=== PATIENT | female | born 1975 | race Caucasian/White ===

== ENCOUNTER 2018-01-06 05:03 | Day surgery (SDC) | payer OTHER ==
[2018-01-04 16:46] VITALS: BMI 35.7
--- NOTE | 2018-01-06 07:38 | HP ---
History & Physical Update - History History: No Change - Physical Physical: No Change - Assessment Assessment: No Change - Plan Plan: No Change (H&P in chart from Dr. Miller on 01/04/18. [facility] [place] negative results from 01/04/18.)
[2018-01-06] MEDS ORDERED: BUPIVACAINE HCL/PF 0.5% (5MG/ML) 10 ML VIAL ONE (08:51)
[2018-01-06] MEDS ORDERED: BUPIVACAINE HCL/PF 0.5% (5MG/ML) 10 ML VIAL IJ ONE ×2 (10:18→10:46)
--- NOTE | 2018-01-06 10:55 | OP ---
Operative Note - Note: Operative Date: 01/06/18 Pre-Operative Diagnosis: Pelvic pain. multiparity. voluntary sterilizaton Operation: Laparoscopic bilateral salpingectomy. Laparoscopic enterolyisis Findings: numerous dense omental adhesions Post-Operative Diagnosis: Same as Pre-op Surgeon: Elsy Miller Pressure Vessel Inspector: Joslyn Paul Anesthesia: General Estimated Blood Loss (mls): 20 Operative Report Dictated: Yes
--- NOTE | 2018-01-06 11:03 | SURG ---
Surgery Psychological Anthropologist Note Psychological Anthropologist: Joslyn Paul PA-C Date of Service: 01/06/18 Diagnosis: elvic pain. multiparity. voluntary sterilizaton Procedure: Laparoscopic bilateral salpingectomy. Laparoscopic enterolyisis I was present for the entirety of the operative procedure. For further detail, please refer to operative report. Visit type - Case Type Case Type: Scheduled Admission - Emergency Emergency Visit: No - New patient This patient is new to me today: Yes Date on this admission: 01/06/18
[2018-01-06] MEDS ORDERED: oxyCODONE HCL 5 MG TABLET PO PRN (11:08)
[2018-01-06] MEDS ORDERED: ONDANSETRON 4 MG/2 ML VIAL IVPUSH PRN (11:08)
[2018-01-06] MEDS ORDERED: PROMETHAZINE HCL 25 MG/1 ML VIAL IVPUSH PRN (11:08)
[2018-01-06] MEDS ORDERED: LACTATED RINGERS SOLUTION 1,000 ML IV SCH (11:15)
[2018-01-06 14:35] VITALS: BP 104/61; PULSE 100; TEMP 100
--- NOTE | 2018-01-06 15:58 | OP ---
DATE OF OPERATION: 01/06/2018 PREOPERATIVE DIAGNOSIS: Voluntary sterilization and multiparity. POSTOPERATIVE DIAGNOSES: 1. Voluntary sterilization and multiparity. 2. Bowel adhesions. OPERATION: Laparoscopic bilateral salpingectomy and laparoscopic enterolysis. ANESTHESIA: General. ANESTHESIOLOGIST: Inocencia Shepherd MD PROCEDURE: Patient was taken to the operating room, placed in dorsal lithotomy position, prepped and draped in the usual sterile fashion. Timeout was performed in accordance to hospital regulation. A Craven catheter was inserted into the bladder. Attention was then directed to the umbilicus, where a 5 mm umbilical incision was made. Veress needle was inserted into the cavity. Approximately 3-4 L of CO2 was insufflated in the cavity. Veress needle was then removed and a 5 mm trocar was inserted. Laparoscope and camera was attached. Visualization revealed the uterus was totally attached to the anterior abdominal wall and numerous bowel adhesions. Two trocars were placed on the left and the right side. After 5 mm incisions had been made, trocars were inserted under direct visualization. The LigaSure and grasper was attached. Bowel adhesions were noted and cautery and cutting of the omental adhesions were done to allow visualization of the fallopian tubes. The left fallopian tube was adherent to also the sidewall. The right fallopian tube was grasped and LigaSure was then used to coagulate and cut the fallopian tube away from the uterus and ovary and the tube was removed and submitted to Pathology. Left tube was identified and found to be adherent to the sidewall. Elevation of the tube was done. Fimbriated end was grasped and coagulation and cutting of the fimbriated end was done and the fallopian tube was removed from the uterus and the ovaries using LigaSure coagulating and cutting. Hemostasis was achieved using cauterization. Omentum was checked and found to be hemostatic. The uterus was not removed and remained adherent to the anterior abdominal wall. After hemostasis had been achieved, irrigation suction done and the specimen submitted to Pathology. The CO2 was removed from the abdomen. The tissues were then closed using 4-0 Biosyn suture. The wound was washed and dressed. Patient had tolerated the procedure. Craven catheter was removed. ESTIMATED BLOOD LOSS: 20 mL Gina [id number]
--- NOTE | 2018-01-07 15:40 | PATH ---
Surgical Pathology Report Patient Name: SANDRITA WHITEHEAD Med. Rec. #: [id number] /Age/Gender: 1975 (Age: 42) / F Account: [id number] Location: [facility] Taken: 01/05/2018 Received: 01/06/2018 Reported: 01/07/2018 Physicians: Elsy Miller M.D. Specimen(s) Received A: RIGHT FALLOPIAN TUBE B: LEFT FALLOPIAN TUBE Clinical History Voluntary sterilization Final Diagnosis A. RIGHT FALLOPIAN TUBE, SALPINGECTOMY: FULL LUMINAL PORTION OF UNREMARKABLE FALLOPIAN TUBE, INCLUDING FIMBRIATED END. B. LEFT FALLOPIAN TUBE, SALPINGECTOMY: FULL LUMINAL PORTION OF UNREMARKABLE FALLOPIAN TUBE, INCLUDING FIMBRIATED END. Electronically Signed Tal Thacker M.D. Gross Description A. Received in formalin labeled as "right tube" is a pink -geiger fallopian tube measuring 5 cm in length with a diameter of 0.8 cm. Fimbriated end and pinpoint lumen are identified. Power Shovel Operator Helper sections are submitted in one cassette B. Received in formalin labeled as "left tube" is a portion of pink -geiger fallopian tube measuring 3.5 cm in length with a diameter of 0.7 cm. In the same container, two separate soft tissue fragments consistent with fimbria measuring 1.5 x 1 cm, each are identified A pinpoint lumen is noted. Power Shovel Operator Helper sections are submitted in one cassette maribel/01/06/2018
== END 2018-01-06 14:45 | disposition home or self-care (01) ==
LOC: JASU-SURG 05:03
PROVIDERS: ATTEND Obstetrics & Gynecology
PROC: 0UT74ZZ Resection of Bilateral Fallopian Tubes, Percutaneous Endoscopic Approach (ICD-10-PCS; principal; 2018-01-06 09:00)
DX: Z30.2 Encounter for sterilization (principal); K66.0 Peritoneal adhesions (postprocedural) (postinfection)
CPT/HCPCS: 88302-TC; 94760

== ENCOUNTER 2018-09-12 08:26 | Day surgery (SDC) | payer OTHER ==
[2018-09-09 08:37] VITALS: BMI 38.0
[2018-09-12] MEDS ORDERED: IBUPROFEN 400 MG TABLET (FP) PO PRN (10:41)
[2018-09-12] MEDS ORDERED: oxyCODONE HCL 5 MG TABLET PO PRN (10:41)
[2018-09-12] MEDS ORDERED: ACETAMINOPHEN 325 MG TABLET (FP) PO PRN (10:41)
--- NOTE | 2018-09-12 10:41 | HP ---
History & Physical Update - History History: No Change - Physical Physical: No Change - Assessment Assessment: No Change - Plan Plan: No Change (No change in HP)
--- NOTE | 2018-09-12 10:43 | OP ---
Operative Note - Note: Operative Date: 09/12/18 Pre-Operative Diagnosis: Abnormal utering bleeding Operation: Hysteroscopic myomectomy. DC Findings: cervical polyp endometrial polyp Post-Operative Diagnosis: Same as Pre-op Surgeon: Elsy Miller Anesthesiologist/CLOTH WIRE WEAVER: Teresa Rubalcava Anesthesia: General Estimated Blood Loss (mls): 20 Operative Report Dictated: Yes
[2018-09-12] MEDS ORDERED: PROPOFOL 20 ML ONE ×2 (10:50→11:10)
[2018-09-12] MEDS ORDERED: MIDAZOLAM HCL 2 MG/2 ML SINGLE DOSE VIAL ONE (10:51)
[2018-09-12] MEDS ORDERED: DEXAMETHASONE SOD PHOSPHATE 4 MG/1 ML VIAL ONE (11:33)
[2018-09-12] MEDS ORDERED: ONDANSETRON 4 MG/2 ML VIAL IVPUSH PRN (12:01)
[2018-09-12] MEDS ORDERED: LACTATED RINGERS SOLUTION 1,000 ML IV SCH (12:15)
[2018-09-12 14:11] VITALS: TEMP 97.9
[2018-09-12 15:15] VITALS: BP 121/69; PULSE 91
--- NOTE | 2018-09-12 20:24 | OP ---
DATE OF OPERATION: 09/12/2018 PREOPERATIVE DIAGNOSIS: Cervical polyp. OPERATION: Hysteroscopic myomectomy, dilatation and curettage. POSTOPERATIVE DIAGNOSIS: Cervical polyp and myometrial and endometrial polyp. SURGEON: Elsy Mliler MD ANESTHESIA: General. ANESTHESIOLOGIST: Teresa Rubalcava MD PROCEDURE: Patient was taken to the operating room, placed in dorsal lithotomy position, prepped and draped in the usual sterile fashion. A timeout was performed in accordance with hospital regulation. Anterior lip of the cervix grasped with a single-tooth tenaculum. Cervix was then dilated to accommodate the operative hysteroscope. Visualization revealed the cervical polyp and an endometrial polyp. Cutting and cautery of the endometrial polyp and cervical polyp was done. Suction D&C was then followed with a number 8 suction curette. Specimen was submitted to Pathology. Hemostasis was achieved. ESTIMATED BLOOD LOSS: 20 mL Patient was taken to recovery room in stable condition. Gina COPELAND/[id number]
--- NOTE | 2018-09-13 12:37 | PATH ---
Surgical Pathology Report Patient Name: SANDRITA WHITEHEAD [facility]. Rec. #: [id number] /Age/Gender: 1975 (Age: 43) / F Account: [id number] Location: [facility] Taken: 09/12/2018 Received: 09/12/2018 Reported: 09/13/2018 Physicians: Elsy Miller M.D. Specimen(s) Received ENDOMETRIAL AND CERVICAL POLYPS Clinical History Cervical polyp Final Diagnosis CERVICAL AND ENDOMETRIAL POLYP, CURETTING: BENIGN ENDOCERVICAL POLYP AND BENIGN ENDOMETRIAL POLYP, ALONG WITH PORTIONS OF PROLIFERATIVE ENDOMETRIUM. NO ENDOMETRIAL HYPERPLASIA OR CARCINOMA IDENTIFIED. Electronically Signed Tal Thacker M.D. Gross Description Received in formalin labeled "cervical and endometrial polyp," is a 2.0 x 1.6 x 0.3 cm aggregate of geiger-pink soft tissue fragments. The formalin is filtered and the specimen is entirely submitted in one cassette. /09/12/2018 saudi09/12/2018
== END 2018-09-12 15:05 | disposition home or self-care (01) ==
LOC: JASU-SURG 08:26
PROVIDERS: ATTEND Obstetrics & Gynecology
PROC: 0UJD8ZZ Inspection of Uterus and Cervix, Via Natural or Artificial Opening Endoscopic (ICD-10-PCS; 2018-09-12)
PROC: 0UBC7ZX Excision of Cervix, Via Natural or Artificial Opening, Diagnostic (ICD-10-PCS; principal; 2018-09-12 10:00)
PROC: 0UB97ZX Excision of Uterus, Via Natural or Artificial Opening, Diagnostic (ICD-10-PCS; 2018-09-12 10:00)
PROC: 0UDB7ZX Extraction of Endometrium, Via Natural or Artificial Opening, Diagnostic (ICD-10-PCS; 2018-09-12 10:00)
DX: N84.1 Polyp of cervix uteri (principal); N84.0 Polyp of corpus uteri
CPT/HCPCS: 84703; 88305-TC; 94760

== ENCOUNTER 2019-04-17 10:00 | Inpatient (IN) | payer OTHER ==
[2019-04-07 17:59] VITALS: BMI 39.3
[2019-04-17] MEDS ORDERED: LIDOCAINE HCL/PF 2% SDV 5ML VIAL ONE (11:15)
[2019-04-17] MEDS ORDERED: PROPOFOL 20 ML ONE ×2 (11:15→12:57)
[2019-04-17] MEDS ORDERED: ROCURONIUM BROMIDE 50 MG/5 ML VIAL ONE ×2 (11:15→12:58)
[2019-04-17] MEDS ORDERED: ONDANSETRON 4 MG/2 ML VIAL ONE ×2 (11:57→15:08)
[2019-04-17] MEDS ORDERED: KETOROLAC TROMETHAMINE 30 MG/1 ML VIAL ONE (11:57)
[2019-04-17] MEDS ORDERED: BUPIVACAINE HCL 0.25% 125 MG/50 ML VIAL ONE (12:23)
[2019-04-17] MEDS ORDERED: MIDAZOLAM HCL 2 MG/2 ML SINGLE DOSE VIAL ONE (12:27)
[2019-04-17] MEDS ORDERED: BUPIVACAINE HCL/PF 0.5% (5 MG/ML) 30 ML VIAL IJ ONE (12:27)
--- NOTE | 2019-04-17 12:33 | HP ---
Admitting History and Physical - Admission Chief Complaint: Morbid obesity History Source: Patient Limitations to Obtaining History: No Limitations - Past Medical History Cardiovascular: Yes: HTN Gastrointestinal: Yes: GERD ...LMP: 04/03/19 Endocrine: Yes: Diabetes Mellitus - Past Surgical History Past Surgical History: Yes: Appendectomy, Breast Biopsy, , Tubal Ligation - Smoking History Smoking history: Never smoked Have you smoked in the past 12 months: No - Alcohol/Substance Use Hx Alcohol Use: Yes (SOCIALLY) Home Medications - Allergies Allergies/Adverse Reactions: Allergies Allergy/AdvReac Type Severity Reaction Status Date / Time No Known Drug Allergies Allergy Verified 04/07/19 17:45 - Home Medications Home Medications: Ambulatory Orders Pantoprazole Sodium [Protonix] 40 mg PO DAILY 09/09/18 Amlodipine Besylate 5 mg PO DAILY 04/07/19 Ergocalciferol (Vitamin D2) [Vitamin D2] 50,000 unit PO WEEKLY 04/07/19 Ferrous Sulfate [Iron] 325 mg PO DAILY 04/07/19 metFORMIN HCL [Metformin HCl] 500 mg PO DAILY 04/07/19 Review of Systems - Review of Systems Constitutional: denies: Chills, Fever Neck: reports: No Symptoms Cardiovascular: reports: No Symptoms Respiratory: reports: No Symptoms Gastrointestinal: reports: No Symptoms Neurological: reports: No Symptoms Pain Intensity: 0 Physical Examination Vital Signs: Vital Signs Temperature 98.1 F 04/17/19 10:51 Pulse Rate 94 H 04/17/19 10:51 Respiratory Rate 18 04/17/19 10:51 Blood Pressure 134/91 04/17/19 10:51 O2 Sat by Pulse Oximetry (%) 97 04/17/19 11:28 Constitutional: Yes: Calm Neck: Yes: WNL Cardiovascular: Yes: WNL Respiratory: Yes: Regular Gastrointestinal: Yes: Soft, Abdomen, Obese Neurological: Yes: Alert, Oriented Problem List - Problems (1) Morbid obesity due to excess calories Code(s): E66.01 - MORBID (SEVERE) OBESITY DUE TO EXCESS CALORIES (2) Diabetes mellitus type 2 in obese Code(s): E11.69 - TYPE 2 DIABETES MELLITUS WITH OTHER SPECIFIED COMPLICATION; E66.9 - OBESITY, UNSPECIFIED (3) Hypertension Code(s): I10 - ESSENTIAL (PRIMARY) HYPERTENSION Qualifiers: Hypertension type: unspecified Qualified Code(s): I10 - Essential (primary ) hypertension (4) BMI 39.0-39.9,adult Code(s): Z68.39 - BODY MASS INDEX (BMI) 39.0-39.9, ADULT Assessment/Plan Laparoscopic possible open vertical sleeve gastrectomy possible liver biopsy, upper endoscopy
[2019-04-17] MEDS ORDERED: fentaNYL CITRATE 250 MCG/5 ML VIAL ONE (12:57)
[2019-04-17] MEDS ORDERED: GLYCOPYRROLATE 0.2 MG/1 ML VIAL ONE ×2 (13:18→13:56)
[2019-04-17] MEDS ORDERED: ESMOLOL HCL 100,000 MCG/10 ML VIAL ONE (13:22)
[2019-04-17] MEDS ORDERED: NEOSTIGMINE METHYLSULFATE 0.5 MG/ML - 10 ML MDV ONE (13:56)
[2019-04-17] MEDS ORDERED: HYDROmorphone HCl 2 MG/ML VIAL IVPB PRN (14:35)
[2019-04-17] MEDS ORDERED: ONDANSETRON 4 MG/2 ML VIAL IVPUSH PRN (14:40)
[2019-04-17] MEDS ORDERED: ACETAMINOPHEN 1000 MG/100 ML VIAL (NON FORMULARY) IVPB ONE (14:40)
[2019-04-17] MEDS ORDERED: PROMETHAZINE HCL 25 MG/1 ML VIAL IVPUSH PRN (14:40)
[2019-04-17] MEDS ORDERED: oxyCODONE HCL 5 MG TABLET PO PRN ×2 (14:40)
--- NOTE | 2019-04-17 14:40 | OP ---
Operative Note - Note: Operative Date: 04/17/19 Pre-Operative Diagnosis: Morbid obesity. Hypertension. Diabetes Mellitus type 2. BMI 39.3 Operation: Laparoscopic vertical sleeve gastrectomy. Laparoscopic wedge liver biopsy Post-Operative Diagnosis: Same as Pre-op (as well as hepatomegaly) Surgeon: Eliazar Dyer Senior Business Development Analyst: Avelino Jones Anesthesia: General Specimens Removed: Greater curvature of stomach. Liver biopsy Estimated Blood Loss (mls): 30 Drains & Tubes with Location: 36 fr Bougie Operative Report Dictated: Yes
[2019-04-17] MEDS ORDERED: SODIUM CHLORIDE 1,000 ML IV SCH (14:45)
[2019-04-17] MEDS ORDERED: METOCLOPRAMIDE HCL INJECTION 10 MG/2 ML VIAL ONE (14:48)
[2019-04-17] MEDS ORDERED: FAMOTIDINE 20 MG/50 ML IVPB 20 MG/50 ML MG IVPB ONE (14:48)
[2019-04-17] MEDS ORDERED: ACETAMINOPHEN INJECTION 100 ML IVPB ONE (14:48)
[2019-04-17] MEDS ORDERED: FAMOTIDINE 20 MG PREMIXED IVPB IVPB ONE (14:50)
[2019-04-17 14:54] LABS: HEMATOCRIT 32.5 % (32.4-45.2); HEMOGLOBIN 10.4 GM/dl (10.7-15.3); MCH 23.4 pg (25.7-33.7); MCHC 32.1 g/dl (32.0-36.0); MEAN CELL VOLUME 73.1 fl (80-96); MEAN PLT VOLUME 10.5 fl (7.5-11.1); PLATELET COUNT 381 K/MM3 (134-434); RBC 4.44 M/mm3 (3.60-5.2); RDW 16.7 % (11.6-15.6)
[2019-04-17] MEDS: METOCLOPRAMIDE HCL INJECTION 10 MG/2 ML VIAL IVPUSH SCH ×2 (15:05→20:16)
[2019-04-17] MEDS: ONDANSETRON 4 MG/2 ML VIAL IVPUSH SCH ×3 (15:12→23:05)
[2019-04-17 15:14] LABS: ALBUMIN 3.4 g/dl (3.4-5.0); BILIRUBIN,TOTAL 0.5 mg/dl (0.2-1); CALCIUM 8.4 mg/dl (8.5-10); CREATININE 0.7 mg/dl (0.55-1.3); POTASSIUM 3.7 mmol/L (3.5-5.1); TOT PROT 6.7 g/dl (6.4-8.2)
[2019-04-17] MEDS: ACETAMINOPHEN 1000 MG/100 ML VIAL (NON FORMULARY) IVPB SCH ×2 (15:15→20:16)
[2019-04-17 17:33] LABS: ANISOCYTOSIS FEW; PLATELET ESTIMATE ADEQUATE
--- NOTE | 2019-04-17 17:41 | CONSULT ---
Consult Consult Specialty:: IM Reason for Consultation:: post op medical management - History of Present Illness Chief Complaint: morbidly obese came for sleeve wit Dr Dyer - History Source History Provided By: Patient Limitations to Obtaining History: No Limitations - Past Medical History Cardio/Vascular: Yes: HTN Gastrointestinal: Yes: GERD ...LMP: 04/03/19 Endocrine: Yes: Diabetes Mellitus - Past Surgical History Past Surgical History: Yes: Appendectomy, Breast Biopsy, , Tubal Ligation - Alcohol/Substance Use Hx Alcohol Use: Yes (SOCIALLY) - Smoking History Smoking history: Never smoked Have you smoked in the past 12 months: No Home Medications - Allergies Allergies/Adverse Reactions: Allergies Allergy/AdvReac Type Severity Reaction Status Date / Time No Known Drug Allergies Allergy Verified 04/07/19 17:45 - Home Medications Home Medications: Ambulatory Orders Pantoprazole Sodium [Protonix] 40 mg PO DAILY 09/09/18 Amlodipine Besylate 5 mg PO DAILY 04/07/19 Ergocalciferol (Vitamin D2) [Vitamin D2] 50,000 unit PO WEEKLY 04/07/19 Ferrous Sulfate [Iron] 325 mg PO DAILY 04/07/19 metFORMIN HCL [Metformin HCl] 500 mg PO DAILY 04/07/19 Docusate Sodium [Colace -] 100 mg PO TID #90 capsule 04/17/19 Famotidine [Pepcid] 20 mg PO BID #60 tablet 04/17/19 Ondansetron HCl [Zofran] 8 mg PO Q6H #30 tablet 04/17/19 Oxycodone HCl/Acetaminophen [Percocet 5-325 mg Tablet] 1 - 2 tab PO Q6H #28 tab MDD 4 04/17/19 Review of Systems - Review of Systems Constitutional: reports: Weakness Eyes: reports: No Symptoms HENT: reports: No Symptoms Neck: reports: No Symptoms Cardiovascular: reports: No Symptoms Respiratory: reports: No Symptoms Gastrointestinal: reports: No Symptoms Genitourinary: reports: No Symptoms Breasts: reports: No Symptoms Reported Musculoskeletal: reports: No Symptoms Integumentary: reports: No Symptoms Neurological: reports: No Symptoms Endocrine: reports: No Symptoms Hematology/Lymphatic: reports: No Symptoms Psychiatric: reports: No Symptoms Physical Exam Vital Signs: Vital Signs Temperature 98.5 F 04/17/19 15:59 Pulse Rate 111 H 04/17/19 15:59 Respiratory Rate 19 19 15:59 Blood Pressure 127/65 04/17/19 15:59 O2 Sat by Pulse Oximetry (%) 96 04/17/19 16:25 Constitutional: Yes: Well Nourished, Obese Eyes: Yes: WNL HENT: Yes: WNL Neck: Yes: WNL Cardiovascular: Yes: WNL Respiratory: Yes: WNL Gastrointestinal: Yes: WNL Renal/: Yes: WNL Musculoskeletal: Yes: WNL Extremities: Yes: WNL Edema: No Peripheral Pulses WNL: Yes Integumentary: Yes: WNL Neurological: Yes: WNL ...Motor Strength: WNL Psychiatric: Yes: WNL Labs: CBC, BMP 04/17/19 14:41 04/17/19 14:35 Assessment/Plan 43 yo female with Morbid obesity. Hypertension. Diabetes Mellitus type 2. S/P Laparoscopic vertical sleeve gastrectomy. Laparoscopic wedge liver biopsy POD#0. cont pain management. incentive spirometry. Pt encouraged to start ambulating tonight. -GI, DVT prophylaxis. -leucocytosis: reactive. will monitor. -HTN: cont amlodipine -uncontrolled type 2 DM, hyperglycemia: on RISS. oral meds to be resumed after resumption of PO diet. -OOB as tolerated -will DC home tomorrow if stable
[2019-04-17] MEDS ORDERED: INSULIN (NOVOLOG) ASPART 100 UNITS/ML 10ML VIAL ONE (18:30)
[2019-04-17] MEDS: INSULIN SLIDING SCALE (NOVOLOG) 1 VIAL SQ SCH (18:32)
--- NOTE | 2019-04-17 18:53 | SPEC ---
DATE OF OPERATION: 04/17/2019 SURGEON: Bryon Dyer MD KEY ATTENDANT: Avelino Jones MD PLACE OF SURGERY: [place] [id number]. PREOPERATIVE DIAGNOSES: 1. Morbid obesity. 2. Body mass index of 39.3. 3. Diabetes mellitus type 2. 4. Hypertension. POSTOPERATIVE DIAGNOSES: 1. Morbid obesity. 2. Body mass index of 39.3. 3. Diabetes mellitus type 2. 4. Hypertension. 5. Hepatomegaly. PROCEDURES: 1. Diagnostic laparoscopy. 2. Laparoscopic vertical sleeve gastrectomy. 3. Laparoscopic wedge liver biopsy. SPECIMEN: 1. Greater curvature of the stomach. 2. Liver biopsy. ESTIMATED BLOOD LOSS: 30 mL. DRAINS: None. ANESTHESIA: GET. BOUGIE SIZE: 36-Chinese. REASON FOR PROCEDURE: This is a 43-year-old female who presents for weight loss options. After describing different options, she decided to proceed with a laparoscopic, possible open, vertical sleeve gastrectomy, possible liver biopsy, upper endoscopy. RISKS AND BENEFITS: After describing the different options for weight loss management, the patient decided to proceed with a laparoscopic, possible open vertical sleeve gastrectomy. The patient was seen by the respective subspecialties and cleared for surgery. The risks and benefits of the procedure were explained. These included bleeding, infection, hernia, [place], DVT, PE, injury to surrounding structures including the liver, colon, bowel, spleen, esophagus, vessel injury, nerve injury, weight regain, gastric leak, staple line leak, sleeve leak, obstruction, vitamin deficiency, hair loss and as some of the possible complications. The patient understood and signed informed consent. DESCRIPTION OF PROCEDURE: The patient was placed supine on the operating room table. The patient underwent general endotracheal intubation. The arms were brought out at 90 degrees and secured. A footboard was placed and the legs were secured laterally with padding. The abdomen was prepped and draped in the usual sterile fashion. A timeout was performed. An incision was made in the left upper quadrant and a Veress needle inserted. Pneumoperitoneum was established. Subsequently, the Veress needle was removed and a 5-mm trocar was placed under direct visualization with the laparoscope. The laparoscopic camera was then inserted and inspection of the abdominal cavity was performed. An incision was then made in the supraumbilical area and a 15-mm trocar was placed under direct visualization. A 5-mm trocar was then placed in the right upper quadrant and a 5-mm trocar was placed below the left subcostal margin. A stab wound was made in the subxiphoid area and a Jane clamp inserted and removed to dilate the tract. A Chidi liver retractor was inserted. The post was secured at the bedside by the nursing staff. The patient was placed in steep reverse Trendelenburg position and the Chidi liver retractor was used to secure the liver towards the anterior abdominal wall. The pylorus was identified and 6 cm proximal to it, the lesser sac was entered using the LigaSure device. All lateral attachments to the greater curvature of the stomach, including the short gastric vessels, were ligated using the LigaSure device toward the gastrosplenic and gastrophrenic ligaments. Once this was done in its entirety, it was confirmed that all tubes within the nasal or oropharyngeal cavity, including a temperature probe were removed by Anesthesia. The bougie was then inserted by Anesthesia. Transection of the stomach was then begun staying adjacent to the bougie but away from the angularis. Transection of the stomach was performed near the portion of the stomach where the lesser sac was entered. Two laparoscopic Endo-SOFIA black jonathan were used at this location. Laparoscopic Endo SOFIA purple staple loads were then used for the remainder of the transection until the greater curvature of the stomach was fully transected. This was done staying close to the bougie. Care was taken to stay away from the angle of His cephalad. The staple line was then inspected. Hemostasis was identified. A leak test was then performed. It was clamped distally to the staple line. Irrigation solution was placed in the left upper quadrant and air was insufflated by Anesthesia into the sleeve. No leaks were identified. No obstruction was identified. This was done through the entirety of the staple line. The stomach was suctioned and the bougie removed fully intact under direct visualization. At this point, the irrigation solution was suctioned and again, hemostasis was noted. A wedge liver biopsy was then performed. The left lobe of the liver was identified. A portion of the edge of the left lobe of the liver was grasped. Using electrocautery, a wedge of the left liver was excised. The specimen was removed and sent off the field. Hemostasis of the wedge liver biopsy site was attained and noted using electrocautery. The 15-mm supraumbilical trocar was then removed and the greater curvature specimen removed from the site using a sponge stick ramos. A Matt-Eric device was then used to close the fascia with a 0 Vicryl suture at the site. Again, hemostasis was noted. The Chidi liver retractor was then removed under direct visualization. Pneumoperitoneum was desufflated. Hemostasis was noted at all incision sites and Marcaine was injected at all incision sites. A 3-0 Vicryl suture was used to close the deep subcutaneous tissue at the 15-mm incision site. All incision sites were closed using 4-0 Biosyn. Sterile dressings were applied. The patient tolerated the procedure well and was transferred to the recovery room in stable condition. BRYON DYER M.D. RUDDY/[id number]
[2019-04-17] MEDS: ENOXAPARIN NA (PORCINE) 40 MG/0.4 ML DISP.SYRIN SQ SCH (21:16)
[2019-04-17] MEDS: FAMOTIDINE 20 MG/50 ML IVPB 20 MG/50 ML MG IVPB SCH (21:16)
[2019-04-18] MEDS: ACETAMINOPHEN 1000 MG/100 ML VIAL (NON FORMULARY) IVPB SCH ×2 (03:15→08:01)
[2019-04-18] MEDS: ONDANSETRON 4 MG/2 ML VIAL IVPUSH SCH ×3 (03:15→10:32)
[2019-04-18] MEDS: METOCLOPRAMIDE HCL INJECTION 10 MG/2 ML VIAL IVPUSH SCH ×2 (03:15→08:02)
[2019-04-18] MEDS ORDERED: SUCCINYLCHOLINE CHLORIDE 200 MG/10 ML VIAL ONE (06:38)
[2019-04-18] MEDS: INSULIN SLIDING SCALE (NOVOLOG) 1 VIAL SQ SCH ×2 (06:43→10:47)
[2019-04-18] MEDS ORDERED: INSULIN (NOVOLOG) ASPART 100 UNITS/ML 10ML VIAL ONE (06:48)
[2019-04-18 07:45] LABS: HEMOGLOBIN 10.3 GM/dl (10.7-15.3); MCH 24.1 pg (25.7-33.7); MCHC 33.2 g/dl (32.0-36.0); MEAN CELL VOLUME 72.8 fl (80-96); MEAN PLT VOLUME 10.9 fl (7.5-11.1); PLATELET COUNT 336 K/MM3 (134-434); RBC 4.25 M/mm3 (3.60-5.2); RDW 16.8 % (11.6-15.6); WHITE BLOOD COUNT 13.1 K/mm3 (4.0-10.8)
[2019-04-18 08:18] LABS: ALBUMIN 3.1 g/dl (3.4-5.0); BILIRUBIN,TOTAL 0.7 mg/dl (0.2-1); CALCIUM 8.2 mg/dl (8.5-10); CREATININE 0.5 mg/dl (0.55-1.3); POTASSIUM 3.9 mmol/L (3.5-5.1); TOT PROT 6.3 g/dl (6.4-8.2)
[2019-04-18] MEDS: FAMOTIDINE 20 MG/50 ML IVPB 20 MG/50 ML MG IVPB SCH (09:07)
[2019-04-18] MEDS: ENOXAPARIN NA (PORCINE) 40 MG/0.4 ML DISP.SYRIN SQ SCH (09:08)
--- NOTE | 2019-04-18 09:35 | PN ---
Progress Note, Physician Chief Complaint: fatigue - Current Medication List Current Medications: Active Medications Amlodipine Besylate (Norvasc -) 5 mg PO DAILY [facility] Last Admin: 04/18/19 09:07 Dose: 5 mg Enoxaparin Sodium (Lovenox -) 40 mg SQ BID [facility] Last Admin: 04/18/19 09:08 Dose: 40 mg Hydromorphone HCl (Dilaudid Vial -) 1 mg IVPB Q3H PRN PRN Reason: PAIN LEVEL 4 - 6 Famotidine/Sodium Chloride (Pepcid 20 Mg Premixed Ivpb -) 20 mg in 50 mls @ 100 mls/hr IVPB BID [facility] Last Admin: 04/18/19 09:07 Dose: 100 mls/hr Sodium Chloride (Normal Saline -) 1,000 mls @ 150 mls/hr IV ASDIR [facility] Last Admin: 04/17/19 15:15 Dose: 100 mls Insulin Aspart (Novolog Vial Sliding Scale -) 1 vial SQ TIDAC [facility]; Protocol Last Admin: 04/18/19 06:43 Dose: 2 unit Metoclopramide HCl (Reglan Injection -) 10 mg IVPUSH Q6H [facility] Last Admin: 04/18/19 08:02 Dose: 10 mg Ondansetron HCl (Zofran Injection) 4 mg IVPUSH Q4H [facility] Last Admin: 04/18/19 06:43 Dose: 4 mg Ondansetron HCl (Zofran Injection) 4 mg IVPUSH Q6H PRN PRN Reason: NAUSEA AND/OR VOMITING Oxycodone HCl (Roxicodone -) 5 mg PO Q4H PRN PRN Reason: PAIN LEVEL 1-5 Last Admin: 04/18/19 06:43 Dose: 5 mg Oxycodone HCl (Roxicodone -) 10 mg PO Q4H PRN PRN Reason: PAIN LEVEL 6-10 Promethazine HCl (Phenergan Injection -) 12.5 mg IVPUSH Q6H PRN PRN Reason: NAUSEA-FOR RESCUE AFTER 15 MIN - Objective Vital Signs: Vital Signs Temperature 98.3 F 04/18/19 03:00 Pulse Rate 96 H 04/18/19 03:00 Respiratory Rate 18 04/18/19 03:00 Blood Pressure 122/75 04/18/19 03:00 O2 Sat by Pulse Oximetry (%) 90 L 04/18/19 03:00 Constitutional: Yes: Well Nourished, No Distress, Calm Eyes: Yes: WNL, Conjunctiva Clear HENT: Yes: WNL Neck: Yes: WNL Cardiovascular: Yes: WNL Respiratory: Yes: WNL Gastrointestinal: Yes: WNL Genitourinary: Yes: WNL Musculoskeletal: Yes: WNL Extremities: Yes: WNL Edema: No Peripheral Pulses WNL: Yes Integumentary: Yes: WNL Neurological: Yes: WNL Labs: CBC, BMP 04/18/19 07:00 04/18/19 07:00 Assessment/Plan 43 yo female with Morbid obesity. Hypertension. Diabetes Mellitus type 2. S/P Laparoscopic vertical sleeve gastrectomy. Laparoscopic wedge liver biopsy POD#1. cont pain management. incentive spirometry. Pt encouraged to ambulate -GI, DVT prophylaxis. -leucocytosis: reactive. will monitor. -chronic anemia: instructed to f/u with PCP outpatient. -HTN: cont amlodipine -uncontrolled type 2 DM, hyperglycemia: on RISS. oral meds to be resumed. -OOB as tolerated -DC planning
[2019-04-18] MEDS ORDERED: amLODIPine BESYLATE 5 MG TABLET (FP) PO SCH (10:00)
[2019-04-18 10:36] VITALS: BP 125/75; PULSE 95; TEMP 98.8
--- NOTE | 2019-04-19 15:44 | PATH ---
Surgical Pathology Report Patient Name: SANDRITA WHITEHEAD Med. Rec. #: [id number] /Age/Gender: 1975 (Age: 43) / F Account: [id number] Location: [facility] MED-SURG Taken: 04/17/2019 Received: 04/17/2019 Reported: 04/19/2019 Physicians: Eliazar Dyer M.D. Specimen(s) Received A: GREATER CURVATURE STOMACH B: LIVER BIOPSY Clinical History Morbid obesity Final Diagnosis A. GREATER CURVATURE STOMACH, LAPAROSCOPIC VERTICAL SLEEVE GASTRECTOMY: SEGMENT OF STOMACH WITH CHRONIC GASTRITIS. IMMUNOSTAINING IS NEGATIVE FOR H. PYLORI ORGANISMS. NEGATIVE FOR INTESTINAL METAPLASIA. B. LIVER, BIOPSY: LIVER TISSUE WITH STEATOSIS (30%). NO HISTOLOGIC EVIDENCE OF HEPATITIS. NO INCREASE IN FIBROSIS (TRICHROME STAIN) OR IRON (IRON STAIN) DEPOSITION. Electronically Signed Bing Stanton M.D. Gross Description A. Received in formalin, labeled "greater curvature of stomach," is a 74 gram, 15.5 x 3.0 x 2.6 cm. portion of stomach with a stapled margin of resection. The serosa is geiger-martin with minimal attached fat. The mucosa is geiger-pink with normal folds. No mucosal masses are identified. Cst sections are submitted in one cassette. B. Received in formalin labeled "liver biopsy," is a 3.4 x 1.1 x 0.9 cm geiger-brown portion of soft tissue, consistent with a portion of liver. Cst sections are submitted in one cassette. /04/18/2019 saudi04/18/2019
== END 2019-04-18 13:33 | disposition home or self-care (01) | DRG 403 ==
LOC: FM/S 10:22
PROVIDERS: ADMIT Surgery; ATTEND Surgery
PROC: 0DB64Z3 Excision of Stomach, Percutaneous Endoscopic Approach, Vertical (ICD-10-PCS; principal; 2019-04-17 13:29)
PROC: 0FB24ZX Excision of Left Lobe Liver, Percutaneous Endoscopic Approach, Diagnostic (ICD-10-PCS; 2019-04-17 13:29)
DX: E66.01 Morbid (severe) obesity due to excess calories (principal); Z68.39 Body mass index [BMI] 39.0-39.9, adult; I10 Essential (primary) hypertension; R16.0 Hepatomegaly, not elsewhere classified; K21.9 Gastro-esophageal reflux disease without esophagitis; E11.65 Type 2 diabetes mellitus with hyperglycemia; D72.829 Elevated white blood cell count, unspecified; D64.9 Anemia, unspecified
CPT/HCPCS: 36415; 74241-TC-FY; 80053; 82962; 84703; 85027; 87389; 88305-TC; 88313-TC; 94760; J0131; J7030